=== PATIENT | female | born 2000 | race Caucasian/White ===

== ENCOUNTER 2019-02-28 23:37 | Emergency (ER) | payer MEDICAID ==
--- NOTE | 2019-02-28 23:48 | EDPHY ---
H & P Source: Patient Time Seen by Provider: 02/28/19 23:44 HPI/ROS: HPI CHIEF COMPLAINT: M1 Hold By Police. HISTORY OF PRESENT ILLNESS: Patient is a 18-year-old female, she arrives to the emergency room by EMS and police on M1 home. She make contact with police at a gas station she had self-inflicted numerous lacerations to her left arm all superficial. Her tetanus shot is up-to-date. She states she is a cutter and often cuts herself. She is homeless. She was just at [facility] emergency room. Patient states that she is currently homeless, has been recently doing methamphetamine. She denies wanting to kill herself. She states she often cut herself. Past Medical History: Dissociative identity, PTSD, depression, suicide ideation , polysubstance abuse, recent use of meth Past Surgical History: No recent surgery. Social History: Homeless with a history polysubstance abuse, methamphetamine. Family History: Noncontributory ROS REVIEW OF SYSTEMS: 10 Systems were reviewed and negative with the exception of the elements mentioned in the history of present illness. Exam Constitutional triage nursing summary reviewed, vital signs reviewed, awake/ alert. Eyes normal conjunctivae and sclera, EOMI, PERRLA. HENT normal inspection, atraumatic, moist mucus membranes, no epistaxis, neck supple/ no meningismus, no raccoon eyes. Respiratory clear to auscultation bilaterally, normal breath sounds, no respiratory distress, no wheezing. Cardiovascular rate normal, regular rhythm, no murmur, no edema, distal pulses normal. Gastrointestinal soft, non-tender, no rebound, no guarding, normal bowel sounds, no distension, no pulsatile mass. Genitourinary no CVA tenderness. Musculoskeletal no midline vertebral tenderness, full range of motion, no calf swelling, no tenderness of extremities, no meningismus, good pulses, neurovascularly intact. Skin numerous horizontally oriented superficial abrasion/laceration to left arm. No deep lacerations. Numerous scars hold to left arm. Neurologic awake, alert and oriented x 3, AAOx3, moves all 4 extremities equally, motor intact, sensory intact, CN II-XII intact, normal cerebellar, normal vision, normal speech. Psychiatric normal mood/affect. Heme/Lymph/Immune no lymphadenopathy. Differential Diagnosis: Includes but is not limited to in a particular order mood disorder, bipolar disorder, depression, suicidal ideation, self-harm, anxiety, PTSD Medical Decision Making: Plan for this patient she is on M1 home. She will need mental evaluation after blood draw for medical clearance. Patient's superficial lacerations will need to be cleaned and dressed. Re-evaluation: 5:30 a.m. patient is sleeping no acute events overnight. Signed over at 7:[address] Lynne. Pending eval. (Stephon Alejandra) Constitutional: Initial Vital Signs Temperature (C) 36.5 C 02/28/19 23:37 Heart Rate 80 02/28/19 23:37 Respiratory Rate 16 02/28/19 23:37 Blood Pressure 111/71 02/28/19 23:37 O2 Sat (%) 98 02/28/19 23:37 O2 Delivery Mode Room Air Allergies/Adverse Reactions: No Known Allergies Allergy (Unverified 02/28/19 23:48) Home Medications: Medication Instructions Recorded Effexor Xr 02/28/19 LaMICtal 02/28/19 Medical Decision Making ED Course/Re-evaluation: 7am: I assumed care of this patient at shift change. She presents with self inflicted abrasions/lacerations and is on an M1 hold. Mental health evaluation pending. 1145: seen by mental health and felt appropriate for inpatient treatment of depression. The patient was accepted by Dr. Chaidez to [facility]. EMTALA completed. (Shivani Lynne) Differential Diagnosis: Differential diagnosis includes though it is not limited to suicidal ideation, overdose, acute psychosis, self-injury, alcohol withdrawal. (Shivani Lynne) - Data Points Laboratory Results: Laboratory Results 02/28/19 23:50 02/28/19 23:50 Departure - Departure Disposition: Other Psych, Not [place] Clinical Impression: Deliberate self-cutting, Suicidal ideation Condition: Good Instructions: Acute Wounds (ED) Referrals: Patient,NotPresent [Unknown] - As per Instructions
[2019-03-01] LABS: PLATELET COUNT 283 10^3/uL (150-400)
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
--- NOTE | 2019-03-01 12:09 | ASMTTCLDSP ---
TLC Discharge Disposition Disposition: Answers: Transfer Discharge Concerns/Recommendations: Notes: In consultation with [facility] ED physician,Dr Lynne it was concurred that Pt does appear to meet 27-65 criteria requiring psychiatric hospitalization as Pt does appear to be an imminent risk of harm to self/others/due to grave disability due to a mental illness condition. Pt was read the Patient Rights and Responsibilities Statement on 03/01/2019 at 10:00,she signed it; original placed in chart and copy given to pt. Type of Hold: Answers: M1/72-hour Hold Hold initiated by: Answers: Police For Transfers, Accepting Callender Facility: For Transfers, Accepting Dr Car Psychiatrist: For Transfers, Reason DC is at capacity Patient is Being Transferred: Date Signed: 03/01/2019 12:08 PM Electronically Signed By:Alyssa Ram. [facility]
[2019-03-01 13:44] VITALS: BP 116/71
== END 2019-03-01 13:41 ==
LOC: EDUNIT#
DX: R45.851 Suicidal ideations (principal); S50.912A Unspecified superficial injury of left forearm, initial encounter; X78.9XXA Intentional self-harm by unspecified sharp object, initial encounter; F32.9 Major depressive disorder, single episode, unspecified; F43.10 Post-traumatic stress disorder, unspecified; F15.10 Other stimulant abuse, uncomplicated; Z59.0 Homelessness
CPT/HCPCS: 80305; G0480

== ENCOUNTER 2019-04-03 21:32 | Emergency (ER) | payer MEDICAID | END 2019-04-04 18:00 ==